=== PATIENT | female | born 1990 | race Caucasian/White ===

== ENCOUNTER → 2017-02-28 | Outpatient (REF) ==
[~2017-02-28] MED LIST: ADRENACLICK IM; BIRTH CONTROL PO; LEXAPRO 10MG10 MG PO; LEXAPRO20 MG PO; NORCO 325 MG-7.1 TAB PO; PREDNISONE20 MG PO
== END ==
LOC: WSOH 08:15
DX: Z02.89 Encounter for other administrative examinations (principal)

== ENCOUNTER 2017-03-11 05:27 | Day surgery (SDC) | payer OTHER ==
[~2017-03-11] VITALS: Ht 157.5 cm; Wt 66.5 kg
[~2017-03-11 05:27] MED LIST changes: -BIRTH CONTROL PO; -LEXAPRO20 MG PO; -NORCO 325 MG-7.1 TAB PO
[2017-03-11] MEDS ORDERED: LEXAPRO20 MG PO (07:00)
[2017-03-11] MEDS ORDERED: BIRTH CONTROL PO (07:02)
[2017-03-11 07:06] VITALS: BP 141/88; PULSE 68; TEMP 98
[2017-03-11 08:50] VITALS: TEMP 98.4
[2017-03-11 09:00] VITALS: BP 136/63; PULSE 99
[2017-03-11 09:15] VITALS: BP 126/67; PULSE 61
[2017-03-11 09:30] VITALS: BP 135/75; PULSE 70
[2017-03-11] MEDS ORDERED: NORCO 325 MG-7.1 TAB PO (09:39)
[2017-03-11 09:45] VITALS: BP 130/71; PULSE 87
== END 2017-03-11 10:07 | disposition home or self-care (01) ==
LOC: SDCO 05:27
DX: T84.84XA Pain due to internal orthopedic prosthetic devices, implants and grafts, initial encounter (principal); M79.4 Hypertrophy of (infrapatellar) fat pad
CPT/HCPCS: J0171; J0690; J1100; J1170; J1885; J2405; J2704; J3010; J7120

== ENCOUNTER → 2017-04-26 | Outpatient (REF) ==
[~2017-04-26] MED LIST changes: +BIRTH CONTROL PO; +LEXAPRO20 MG PO; +NORCO 325 MG-7.1 TAB PO
== END ==
LOC: WSOH 18:00
DX: Z02.89 Encounter for other administrative examinations (principal)